=== PATIENT | male | born 1935 | race Caucasian/White ===

== ENCOUNTER → 2017-04-05 | Day surgery (SDC) | payer MEDICARE ==
[~2017-04-05] MED LIST: ACET325 PO; ASPI325T PO; FISH1000 PO; LACTATED RINGER'S 1000 ML INJ 1,000 ML ONE; LEVO25TA36 PO; NIAC500C PO; PROPOFOL 500 MG/50 ML BTL IV ONE; SAWPOW PO; SIMV40TA PO; TAB-TAB PO; VITA400C70 PO; ZINCLOZ8 PO
--- NOTE | 2017-04-05 13:24 | GIPROC ---
[facility] [address] [facility], [address] COLONOSCOPY PROCEDURE REPORT EXAM DATE: 04/05/2017 PATIENT NAME: Tyrese Potts MR #: [id number] BIRTHDATE: 1935 ENDOSCOPIST: Carlos Brown MD ORDER #: [id number] CADASTRAL ENGINEER: Lianne Nunes and Neha Valencia RN STATUS: outpatient INDICATIONS: The patient is a 81 yr old male here for a colonoscopy due to positive stool DNA test PROCEDURE PERFORMED: Colonoscopy with polypectomy MEDICATIONS: None and Per Anesthesia. PREP QUALITY: good ESTIMATED BLOOD LOSS: None CONSENT: The patient understands the risks and benefits of the procedure and understands that these risks include, but are not limited to: sedation, allergic reaction, infection, perforation and/or bleeding. Alternative means of evaluation and treatment include, among others: physical exam, x-rays, and/or surgical intervention. The patient elects to proceed with this endoscopic procedure. medical equipment was checked for proper function. Hand hygiene and appropriate measures for infection prevention was taken. After the risks, benefits and alternatives of the procedure were thoroughly explained, Informed consent was verified, confirmed and timeout was successfully executed by the treatment team. A digital exam revealed no abnormalities of the rectum The EC-[id number] ([id number]) and EC-[id number] ([id number]) endoscope was introduced through the anus and advanced to the cecum, which was identified by both the appendix and ileocecal valve. The instrument was then slowly withdrawn as the colon was fully examined. COLON FINDINGS: A large smooth sessile polyp was found in the ascending colon. A polypectomy was performed using snare cautery. The resection was complete and the polyp tissue was completely retrieved. Mild diverticulosis was noted in the sigmoid colon. The colon mucosa was otherwise normal. Retroflexed views revealed no abnormalities The scope was then completely withdrawn from the patient and the procedure terminated. PROCEDURE WITHDRAWAL TIME:24.2minutes ADVERSE EVENTS: There were no complications. IMPRESSIONS: 1. A large sessile polyp was found in the ascending colon; polypectomy was performed using snare cautery 2. Mild diverticulosis was noted in the sigmoid colon 3. The colon mucosa was otherwise normal 4. Retroflexed views revealed no abnormalities 5. Revealed no abnormalities of the rectum RECOMMENDATIONS: 1. Await biopsy results. Biopsy results will not be ready for 7-10 days. If you don't hear from us in two weeks, call our office for results. 2. High fiber diet 3. Yearly hemoccult 4. Follow-up: GI Clinic PRN RECALL: Return 3 years Colonoscopy Carlos Brown MD eSigned: Carlos Brown MD 04/05/2017 1:23 PM cc: Luis Rangel M.D. PATIENT NAME: Tyrese Potts MR#: [id number]
== END | disposition home or self-care (01) ==
LOC: ESDC 09:21
PROVIDERS: ATTEND Internal Medicine Gastroenterology
DX: R19.5 Other fecal abnormalities (principal); D12.2 Benign neoplasm of ascending colon; K57.90 Diverticulosis of intestine, part unspecified, without perforation or abscess without bleeding
CPT/HCPCS: 00811; 45385; 88305; J7120